=== PATIENT | female | born 1985 | race Two or more races ===

== ENCOUNTER 2024-07-22 09:07 | Emergency (ER) | payer MEDICAID, SELFPAY ==
[2024-07-22 09:23] VITALS: BP 128/79; PULSE 75; RESP 16; TEMP 37.1; O2SAT 99; BMI 25.9
--- NOTE | 2024-07-22 09:33 | EDNOTE_ITS ---
ED Allergic Reaction RME/HPI General Chief complaint: Allergic Reaction Stated complaint: ITCHINESS TO THE FEET, THROAT SWELLING Time Seen by Provider: 07/22/24 09:11 Arrival date/time: 07/22/24 09:07 39-year-old female present to emergency department today complains of rash and itching Limitations: no limitations Related Data Previous Rx's ?Medication ?Instructions ?Recorded diphenhydramine HCl 25 mg capsule 25 mg PO Q8H PRN allergic symptoms 07/22/24 (Benadryl) #30 caps Allergies Allergy/AdvReac Type Severity Reaction Status Date / Time No Known Allergies Allergy Verified 07/22/23 07:26 Review of Systems Review of Systems Systems Reviewed: All systems reviewed, normal except as documented Constitutional Constitutional: Reports system reviewed and no additional complaints, except as documented, Denies fever(s) and Denies headache(s) Eyes Eyes: Reports system reviewed and no additional complaints, except as documented and Denies blurry vision ENT Ears, Nose, Mouth, and Throat: Reports system reviewed and no additional complaints, except as documented, Denies headache(s), Denies nasal congestion and Denies nasal discharge Cardiovascular Cardiovascular: Reports system reviewed and no additional complaints, except as documented, Denies chest pain and Denies dyspnea Respiratory Respiratory: Reports system reviewed and no additional complaints, except as documented, Denies chest congestion, Denies cough and Denies dyspnea Gastrointestinal Gastrointestinal: Reports system reviewed and no additional complaints, except as documented and Denies abdominal pain Integumentary/Breasts Skin/Breast: Reports system reviewed and no additional complaints, except as documented, Reports pruritus and Reports rash Neurologic Neurologic: Reports system reviewed and no additional complaints, except as documented, Reports as per HPI and Denies headache(s) Past Medical History Past Medical History NEUROLOGIC: Negative Neurological Disorders CARDIAC: Negative Cardiac Disorders ED Exam General Limitations: Present no limitations General appearance: Present alert and in no apparent distress Head Head exam: Present atraumatic, normocephalic and normal inspection Eye Eye exam: Present normal appearance, PERRL and EOMI; Absent conjunctival injection ENT ENT exam: Present normal exam, normal oropharynx and mucous membranes moist Neck Neck exam: Present normal inspection, full ROM and trachea midline Chest Chest inspection: Present normal inspection and symmetric chest wall rise Respiratory Respiratory exam: Present normal lung sounds bilaterally; Absent respiratory distress Cardiovascular Cardiovascular exam: Present regular rate, normal rhythm and normal heart sounds Abdominal Exam Abdominal exam: Present soft and normal bowel sounds; Absent distention, tenderness, guarding, rebound or rigidity Extremities Exam Extremities exam: Present normal inspection and full ROM Back Exam Back exam: Present normal inspection and full ROM Neurological Exam Neurological exam: Present alert, oriented X3, CN II-XII intact, normal gait and reflexes normal; Absent motor sensory deficit Psychiatric Psychiatric exam: Present normal affect and normal mood Skin Skin exam: Present warm, dry and rash Course Quality Measures none Orders Category Date Time Status Dexamethasone Inj [Decadron Inj] Med 07/22/24 09:33 Discontinued 10 mg IM X1 ONE DiphenhydrAMINE [Benadryl] Med 07/22/24 09:33 Discontinued 25 mg PO X1 ONE Vital Signs Vital signs: Vital Signs Temperature 98.8 F 07/22/24 09:23 Pulse Rate 75 07/22/24 09:23 Respiratory Rate 16 07/22/24 09:23 Blood Pressure 128/79 07/22/24 09:23 Pulse Oximetry (%) 99 07/22/24 09:23 Oxygen Delivery Method Room Air 07/22/24 09:23 O2 saturation 99% on room air within normal limits Allergic Reaction MDM Narrative MDM Narrative:: 39-year-old female present to emergency department today complains of rash and itching Patient reports no chance of On exam patient well-appearing patient does not appear ill or toxic patient is not appear in acute distress Patient has no evidence of anaphylaxis patient medicated here and discharged with meds Patient discharged home in no distress to follow-up with primary care doctor in the next 24 to 48 hours and for any worsening symptoms to return to the ER immediately Patient data External records reviewed:: [facility] previous records Clinical information provided by:: patient Social determinants that could affect healthcare access:: none Patient has the following chronic illnesses:: None How is presenting disease/condition affected by chronic disease/condition?: no chronic disease Evaluation data The following diagnostics were reviewed and interpreted by me:: other (specify) (N/A) Lab and/or radiology exams considered but not ordered:: Consider not indicated Interpretation Summary: N/A Medications / Prescriptions Medications or Prescriptions considered but not ordered:: Given Medication administrations:: Medication Administration History Discontinued Medications Dexamethasone Sodium Phosphate (Dexamethasone Sod Phos Inj 10 Mg/Ml Vial) 10 mg IM X1 ONE Stop: 07/22/24 09:34 Last Admin: 07/22/24 09:51 Dose: 10 mg Documented By: ARF Diphenhydramine HCl (Diphenhydramine 25 Mg Capsule) 25 mg PO X1 ONE Stop: 07/22/24 09:34 Last Admin: 07/22/24 09:51 Dose: 25 mg Documented By: ARF Given Consultations Consultation(s) initiated? (list below): No Diagnosis Differential Diagnosis allergic reaction: anaphylaxis, allergic reaction and urticaria Most likely diagnosis given after review of the tests above:: Allergic reaction Admission Indicated Admission indicated?: not indicated Admission Request Was there a request for admission?: No Disposition Plan Disposition Plan: Discharge Discharge Attestation Discharge Attestation: The patient and all family members were given an opportunity to ask questions and understood the discharge instructions. Discharge instructions specifically effects, indications for sooner follow up or return to the emergency department, and the expected course of current diagnosis. Patient condition: Stable Discharge Plan Plan Patient Disposition: HOME (Self Care) Disposition Comment: Stable Prescriptions/Referrals Prescriptions/Med Rec: New diphenhydramine HCl [Benadryl] 25 mg capsule 25 mg PO Q8H PRN (Reason: allergic symptoms) Qty: 30 0RF Problem List Clinical Impression: Allergic reaction Patient/Caregiver Discharge Instructions Additional Instructions: Please follow up with your primary care doctor in the next 24-48hrs for any worsening symptoms return here immediately Print Language: Turkish Stand Alone Forms: Lisa Award Info., Patient Portal Info Letter PA/STAFFING BRANCH MANAGER Supervising Physician PA/REED Supervising Physician: Dr salomon
[2024-07-22] MEDS: DiphenhydrAMINE 25 MG CAPSULE PO (09:51)
[2024-07-22] MEDS: DEXAMETHASONE SOD PHOS INJ 10 MG/ML VIAL IM (09:51)
== END 2024-07-22 10:46 | disposition home or self-care (01) ==
LOC: SERX 10:22
PROVIDERS: Emergency Provider Emergency Medicine
DX: R21 Rash and other nonspecific skin eruption (principal)
CPT/HCPCS: 96372; 99283; J1100; A9270

== ENCOUNTER 2024-11-19 18:48 | Emergency (ER) | payer MEDICAID, SELFPAY ==
[2024-11-19 18:50] VITALS: BMI 24.0
--- NOTE | 2024-11-19 19:42 | PD.EDABDPN ---
ED Abdominal Pain RME/HPI General Chief Complaint: Back Pain/Injury Stated complaint: BILATERAL FLANK PAIN SINCE LAST NIGHT Time seen by provider: 11/19/24 19:37 Arrival date/time: 11/19/24 18:48 RME / HPI RME / HPI narrative: This section includes all my notes and documentations, including HPI, PE, and ED course. Sarkis Julio MD HPI: 39 y/o female with Hx of Obesity, Arthritis and Rheumatoid Arthritis presents to ED c/o bilateral flank pain, chills, lower abdominal pain, urinary urgency, and urinating only in small amounts x last night. Patient denies dysuria, vomiting, or fever. No other complaints. ROS: All negative except as documented in HPI. Physical Exam: General: Alert and oriented. In obvious pain. Eyes: Conjunctivae and lids clear. ENT: No nasal congestion. Neck: Supple. Heart: RRR. Lungs: No respiratory distress. Good air movement. No rhonchi, wheezing, rales. Abdomen: Soft with diffuse tenderness, difficult to localize. Normal bowel sounds. No distension. No rebound or guarding. Back: Bilateral CVA tenderness. Skin: Warm and dry. Neuro: Alert and oriented X 3. Prior to diagnostics, patient given Zofran ODT and two Tylenol #3. When she developed rash and itching, she was given Benadryl and prednisone. I reviewed all diagnostic test results. My review of the abdominal CT report is NAD. Blood tests and urine tests remarkable for WBC 13.6 and severe UTI. At this point, diagnoses include pyelonephritis. Rocephin 1 g IM given for pyelonephritis. When she needed more help with her pain, she was given Toradol 60 mg IM. Significant improvement noted. Recommended outpatient treatment. Based on my best medical judgment, made decision no further evaluation or treatment indicated at this time. Patient understands and agrees to the discharge instructions customized and printed, see below. Discharge instructions from Dr. Julio: 1. After evaluation, you have kidney infection which can cause severe pain. 2. Take cefdinir to kill the germs causing the infection.? Increase oral fluid to flush it out.? Maintain clear urine.? If dark or yellow, increase oral fluid. 3. Zofran for nausea/vomiting.? Toradol 10 mg every 6-8 hours today and tomorrow then as needed for pain. 4. See a private doctor on 11/23/2024 for recheck.? Ask to check the final urine culture results from today to make sure cefdinir doesn't need to be changed due to resistance. 5. Seek immediate medical care with worsening, fever, or with any concerns. Instrucciones de dolores del Dr. Julio: 1. Despu?s de la evaluaci?n, presenta gloria infecci?n renal que puede causar dolor intenso. 2. Uncertain cefdinir para eliminar los g?rmenes que causan la infecci?n. Aumente la cantidad de l?quidos orales para eliminarlos. Mantenga la orina damaso. Si es oscura o amarilla, aumente la cantidad de l?quidos orales. 3. Zofran para n?useas y v?mitos. Toradol 10 mg cada 6-8 horas hoy y ma?blair, seg?n sea necesario para el dolor. 4. Consulte con un m?dico particular el 23/11/2024 para gloria nueva revisi?n. Solicite que revisen los resultados finales del urocultivo de hoy para asegurarse de que no sea necesario cambiar la dosis de cefdinir debido a la resistencia. 5. Busque atenci?n m?dica inmediata si presenta empeoramiento, fiebre o cualquier inquietud. Sarkis Julio MD Related Data Previous Rx's ?Medication ?Instructions ?Recorded diphenhydramine HCl 25 mg capsule 25 mg PO Q8H PRN allergic symptoms 07/22/24 (Benadryl) #30 caps cefdinir 300 mg capsule 300 mg PO BID #14 caps 11/19/24 ketorolac 10 mg tablet 10 mg PO Q8H PRN pain 5 days #10 11/19/24 tabs ondansetron 4 mg disintegrating 4 mg PO TID PRN nausea and 11/19/24 tablet vomiting 30 days #10 tabs Allergies Allergy/AdvReac Type Severity Reaction Status Date / Time No Known Allergies Allergy Verified 11/19/24 18:53 Review of Systems Review of Systems Systems Reviewed: All systems reviewed, normal except as documented Narrative Review of Systems: Refer to HPI above. Past Medical History Past Medical History GASTROINTESTINAL: Positive Gastrointestinal Disorders and Obesity REPRODUCTIVE: Positive Previous Pregnancies MUSCULOSKELETAL: Positive Musculoskeletal Disorders, Arthritis and Rheumatoid Arthritis Surgical History SURGICAL: Positive Section (x2) Social History SMOKING STATUS: Never smoker ED Exam Narrative Physical exam: Refer to HPI above. Course Quality Measures none Orders Category Date Time Status CT abdomen pelvis wo con Stat Exams 11/19/24 19:43 Completed Amylase Stat Lab 11/19/24 19:55 Completed Bilirubin,Direct Stat Lab 11/19/24 19:55 Completed CBC Stat Lab 11/19/24 19:55 Completed CMP [Comprehensive Metabolic Panel] Stat Lab 11/19/24 19:55 Completed HCG Qualitative,Urine Stat Lab 11/19/24 21:20 Completed HCG,Qualitative Serum Stat Lab 11/19/24 19:55 Completed Lipase Stat Lab 11/19/24 19:55 Completed Magnesium Stat Lab 11/19/24 19:55 Completed UA, C/S IF [Urinalysis, C/S if Indicated] Stat Lab 11/19/24 21:20 Completed Urine Culture Stat Lab 11/19/24 21:20 Received ACETAMINOPHEN w/COD 300-30 [Tylenol w/Cod #3] Med 11/19/24 19:42 Discontinued 2 tab PO X1 ONE DiphenhydrAMINE [Benadryl] Med 11/19/24 21:31 Discontinued 50 mg PO X1 ONE Ketorolac Inj [Toradol Inj] Med 11/19/24 21:54 Discontinued 60 mg IM X1 ONE Ondansetron Odt [Zofran Odt] Med 11/19/24 19:42 Discontinued 4 mg PO X1 ONE cefTRIAXone [Rocephin] 1,000 mg Med 11/19/24 23:04 Discontinued Lidocaine 1% 20 ml [Xylocaine 1% 20 ML] 2.1 ml IM X1 predniSONE Med 11/19/24 21:31 Discontinued 60 mg PO X1 ONE Vital Signs Vital signs: Vital Signs Temperature 97.8 F 11/19/24 21:29 Pulse Rate 90 11/19/24 21:29 Respiratory Rate 18 11/19/24 21:29 Blood Pressure 125/85 H 11/19/24 21:29 Pulse Oximetry (%) 97 11/19/24 21:29 Oxygen Delivery Method Room Air 11/19/24 21:29 Abdominal Pain MDM MDM Narrative MDM Narrative:: Scribe Attestation: ITereista, am scribing for and in the presence of Dr. Julio. Provider Notation: Although this document has been carefully reviewed, there may still be some phonetic and other typographical errors. These errors are purely grammatical due to imperfections in the software program and should not be construed in any way to compromise the substance of the patient's medical care during this visit. Patient data External records reviewed:: [facility] previous records (Prior ED records reviewed from 07/22/24. Patient was seen for Allergic reaction.) Clinical information provided by:: patient Social determinants that could affect healthcare access:: none Patient has the following chronic illnesses:: Obesity, Arthritis and Rheumatoid Arthritis How is presenting disease/condition affected by chronic disease/condition?: exacerbated by Evaluation data The following diagnostics were reviewed and interpreted by me:: lab results and radiology exam(s) Lab and/or radiology exams considered but not ordered:: None Interpretation Summary: Pyelonephritis Medications / Prescriptions Medications or Prescriptions considered but not ordered:: None Medication administrations:: Medication Administration History Discontinued Medications Acetaminophen/Codeine Phosphate (Acetaminophen W/Cod 300-30 Tablet) 2 tab PO X1 ONE Stop: 11/19/24 19:43 Last Admin: 11/19/24 19:53 Dose: 2 tab Documented By: JULEE Ceftriaxone Sodium 1,000 mg/ (Lidocaine HCl 2.1 ml) 0 mg IM X1 ONE Stop: 11/19/24 23:05 Last Admin: 11/19/24 23:29 Dose: 1,000 mg Documented By: JULEE Comments: 2.1 ml lido Diphenhydramine HCl (Diphenhydramine 25 Mg Capsule) 50 mg PO X1 ONE Stop: 11/19/24 21:32 Last Admin: 11/19/24 21:39 Dose: 50 mg Documented By: JULEE Ketorolac Tromethamine (Ketorolac Inj 60 Mg/2 Ml Vial) 60 mg IM X1 ONE Stop: 11/19/24 21:55 Last Admin: 11/19/24 23:34 Dose: Not Given Documented By: JULEE Non-Admin Reason: Patient Refused Ondansetron HCl (Ondansetron Odt 4 Mg Tabrap) 4 mg PO X1 ONE; Protocol Stop: 11/19/24 19:43 Last Admin: 11/19/24 19:53 Dose: 4 mg Documented By: JULEE Prednisone (Prednisone 20 Mg Tablet) 60 mg PO X1 ONE Stop: 11/19/24 21:32 Last Admin: 11/19/24 21:39 Dose: 60 mg Documented By: JULEE Acetaminophen/Codeine Phosphate, Ceftriaxone Sodium, Diphenhydramine HCl, Ketorolac Tromethamine, Ondansetron HCl, Prednisone Consultations Consultation(s) initiated? (list below): No Diagnosis Differential diagnosis abdominal pain: abdominal pain, acute appendicitis, calculus of kidney, constipation, diverticulitis, endometriosis, gastroenteritis, pancreatitis, small bowel obstruction and other (UTI vs Pyelonephritis) Most likely diagnosis given after review of the tests above:: Kidney infection Admission Indicated Admission indicated?: not indicated Explain why admission is indicated or not indicated:: With significant improvement, there was no indication for admission. Admission Request Was there a request for admission?: No Disposition Plan Disposition Plan: Discharge Discharge Attestation Discharge Attestation: The patient and all family members were given an opportunity to ask questions and understood the discharge instructions. Discharge instructions specifically effects, indications for sooner follow up or return to the emergency department, and the expected course of current diagnosis. Patient condition: Stable Discharge Plan Plan Patient Disposition: HOME (Self Care) Prescriptions/Referrals Prescriptions/Med Rec: New ketorolac 10 mg tablet 10 mg PO Q8H PRN (Reason: pain) 5 Days Qty: 10 0RF ondansetron 4 mg tablet,disintegrating 4 mg PO TID PRN (Reason: nausea and vomiting) 30 Days Qty: 10 0RF cefdinir 300 mg capsule 300 mg PO BID Qty: 14 0RF No Action diphenhydramine HCl [Benadryl] 25 mg capsule 25 mg PO Q8H PRN (Reason: allergic symptoms) Qty: 30 0RF Referrals: No Primary/Family,Physician [Primary Care Provider] - In 1 week Problem List Clinical Impression: Kidney infection Patient/Caregiver Discharge Instructions Discharge Activity: activity as tolerated Education Materials: ED Pyelonephritis, Female (Adult) Additional Instructions: Discharge instructions from Dr. Julio: 1. After evaluation, you have kidney infection which can cause severe pain. 2. Take cefdinir to kill the germs causing the infection.? Increase oral fluid to flush it out.? Maintain clear urine.? If dark or yellow, increase oral fluid. 3. Zofran for nausea/vomiting.? Toradol 10 mg every 6-8 hours today and tomorrow then as needed for pain. 4. See a private doctor on 11/23/2024 for recheck.? Ask to check the final urine culture results from today to make sure cefdinir doesn't need to be changed due to resistance. 5. Seek immediate medical care with worsening, fever, or with any concerns. Instrucciones de dolores del Dr. Julio: 1. Despu?s de la evaluaci?n, presenta gloria infecci?n renal que puede causar dolor intenso. 2. Uncertain cefdinir para eliminar los g?rmenes que causan la infecci?n. Aumente la cantidad de l?quidos orales para eliminarlos. Mantenga la orina damaso. Si es oscura o amarilla, aumente la cantidad de l?quidos orales. 3. Zofran para n?useas y v?mitos. Toradol 10 mg cada 6-8 horas hoy y ma?blair, seg?n sea necesario para el dolor. 4. Consulte con un m?dico particular el 23/11/2024 para gloria nueva revisi?n. Solicite que revisen los resultados finales del urocultivo de hoy para asegurarse de que no sea necesario cambiar la dosis de cefdinir debido a la resistencia. 5. Busque atenci?n m?dica inmediata si presenta empeoramiento, fiebre o cualquier inquietud. Print Language: Belarusian Stand Alone Forms: Lisa Award Info., Patient Portal Info Letter
--- NOTE | 2024-11-19 19:43 | XR_ITS ---
Examination: CT abdomen and pelvis without contrast. Coronal 3-D reconstructions. Sagittal 2-D reconstructions. Date and time of exam:November 19, 2024 1030 hrs. Indications: Mid abdominal pain beginning 2 days ago CTDI: vol (mGy): 6.31 DLP: (mGycm): 357 Technique: Axial images of the abdomen have been obtained, 3 mm slice thickness Intravenous contrast material has not been administered. Low dose protocols were performed. One or more of the following dose reduction techniques were used; automated exposure control, adjustment of the mA and/or KV according to patient size, use of iterative reconstruction technique. Findings: No visualized liver or splenic lesion Absent gallbladder Common hepatic duct 9 mm no common hepatic or common bile duct stones Negative for pancreatitis Normal adrenal glands No renal or ureteral calculi, no hydronephrosis Aorta normal size 8mm fat-containing umbilical hernia Normal appendix Anteverted uterus with irregular uterine fundal contour Urinary bladder intact Osseous structures intact Impression: Absent gallbladder Common hepatic duct 9 mm, no common hepatic or common bile duct stones noted, consider hepatobiliary sonography follow-up No renal or ureteral calculi, no hydronephrosis Small fat-containing umbilical hernia Normal appendix Recommend pelvic sonography to assess irregular uterine fundal contour
[2024-11-19] MEDS: ACETAMINOPHEN w/COD 300-30 TABLET 2 TAB PO (19:53)
[2024-11-19] MEDS: ONDANSETRON ODT 4 MG TABRAP PO (19:53)
[2024-11-19 20:14] LABS: Basophils % (Auto) 0 % (0-2.5); Eosinophils % (Auto) 0 % (0-10); Hematocrit 43.5 % (36.0-46.0); Hemoglobin 15.4 g/dL (12.0-16.0); Immature Granulocytes % (Auto) 0 % (0-0); Immature Granulocytes Auto 0.04 Thou/mm3 (0.00-0.00); Lymphocytes # (Auto) 2.4 Thou/mm3 (1.0-4.8); Lymphocytes % (Auto) 18 % (10-50); Mean Corpuscular HGB Conc 35.4 g/dl (31.0-37.0); Mean Corpuscular Hemoglobin 32.6 pg (25.0-35.0); Mean Corpuscular Volume 92 fL (80-100); Monocytes # (Auto) 1.1 Thou/mm3 (0.0-0.8); Monocytes % (Auto) 8 % (0-12); Neutrophils % (Auto) 74 % (37-80); Nucleated Red Blood Cell % 0 /100 WBC (0); Platelet Count 281 Thou/mm3 (140-440); Red Blood Count 4.72 Miln/mm3 (4.00-5.20); White Blood Count 13.6 Thou/mm3 (3.6-11.0)
[2024-11-19 20:29] LABS: Alanine Aminotransferase 40 U/L (10-49); Albumin, Serum 4.3 gm/dL (3.5-5.0); Albumin/Globulin Ratio 1.3 (1.2-2.2); Alkaline Phosphatase 74 U/L (46-116); Amylase 102 U/L (30-118); Anion Gap 6 (7-16); Aspartate Amino Transferase 27 U/L (0-34); BUN/Creatinine Ratio 13 Ratio (12-20); Bilirubin,Direct 0.3 mg/dL (0.0-0.3); Bilirubin,Total 1.2 mg/dL (0.3-1.2); Blood Urea Nitrogen 10 mg/dL (9-23); Calcium 9.3 mg/dL (8.3-10.6); Calcium (Corrected) 9.3 mg/dL (8.5-10.1); Carbon Dioxide 27.7 mMol/L (20.0-31.0); Chloride 105 mMol/L (98-107); Creatinine (Component) 0.8 mg/dL (0.6-1.3); Estimated Creatinine Clearance 83.1 mL/min (>60); Globulin 3.3 gm/dL (2.3-3.5); Glucose 99 mg/dL (74-106); Lipase 36 U/L (12-53); Osmolality,Calculated 276 (275-295); Potassium 3.7 mMol/L (3.4-5.1); Sodium 139 mMol/L (136-145); Total Protein 7.6 gm/dL (5.7-8.2); eGFR > 60 See Note
[2024-11-19 20:56] LABS: HCG,Qualitative Serum Negative
[2024-11-19 21:29] VITALS: BP 125/85; PULSE 90; RESP 18; TEMP 36.6; O2SAT 97
[2024-11-19] MEDS: predniSONE 20 MG TABLET 60 MG PO (21:39)
[2024-11-19] MEDS: DiphenhydrAMINE 25 MG CAPSULE 50 MG PO (21:39)
[2024-11-19 21:48] LABS: Collection Type, Urine Clean Catch
[2024-11-19 21:58] LABS: HCG Qualitative,Urine Negative
[2024-11-19 22:07] LABS: Bacteria,Urine Rare; Bilirubin,Urine Negative (Negative); Blood,Urine 2+ (Negative); Clarity,Urine Clear (Clear/Hazy); Color,Urine Lt-Yellow (Lt Yel-Yel); Culture Indicated,Urine Yes; Glucose, Urine Negative (Negative); Ketones,Urine Negative (Negative); Leukocyte Esterase,Urine Positive (Negative); Nitrite,Urine Negative (Negative); PH,Urine 6.5 (5.0-7.0); Protein,Urine Trace (Neg - Trace); RBC,Urine 9 /hpf (0-3); Specific Gravity,Urine 1.009 (1.001-1.035); Squamous Epithelial Cell,Urine 1 /hpf (0-5); Urobilinogen,Urine Negative mg/dL (0.0-1.0); WBC,Urine 91 /hpf (0-5)
[2024-11-19] MEDS: cefTRIAXone 1,000 MG, LIDOCAINE 1% 20 ML 2.1 ML IM (23:29)
== END 2024-11-19 23:43 | disposition home or self-care (01) ==
PROVIDERS: Emergency Provider Emergency Medicine
DX: N12 Tubulo-interstitial nephritis, not specified as acute or chronic (principal)
CPT/HCPCS: 36415; 74176; 80053; 81001; 81025; 82150; 82248; 83690; 83735; 84703; 85025; 87077; 87086; 87186; 96372; 99284; J0696; J3490; J7512; Q0162; A9270

== ENCOUNTER → 2025-03-10 | Outpatient (CLI) | payer MEDICAID, SELFPAY ==
--- NOTE | 2025-03-10 | XR_ITS ---
Examination: Bilateral wrists 6 views TECHNIQUE: AP oblique lateral each wrist total 6 views Date and time: March 10 thousand 25, 0927 hours INDICATIONS: Bilateral wrist pain beginning 15 years ago. FINDINGS: Mild to moderate bone demineralization. Mild to moderate narrowing radiocarpal intercarpal carpometacarpal joints bilaterally. No erosive arthritis. No fractures. No avascular necrosis IMPRESSION: Mild to moderate narrowing radiocarpal, intercarpal, carpometacarpal joints
--- NOTE | 2025-03-10 09:04 | XR_ITS ---
Examination: Bilateral hands, 6 views. Technique: AP, Oblique, Lateral each hand total 6 views Date and time of exam: March 10 thousand 25, 0920 hours INDICATIONS: Bilateral hand and wrist pain 15 years. FINDINGS: Moderate juxta-articular bone demineralization Mild to moderate diffuse narrowing joints of the wrists and hands. No erosive arthritis. No fractures. No avascular necrosis. No foreign bodies IMPRESSION: Mild to moderate diffuse narrowing joints of the wrists and hands No erosive arthritis
== END | disposition home or self-care (01) ==
LOC: CDIM 08:53
PROVIDERS: PCP Family Medicine; Referring Provider Nurse Practitioner; Visit Provider Nurse Practitioner
DX: M25.832 Other specified joint disorders, left wrist (principal); M25.831 Other specified joint disorders, right wrist; M25.842 Other specified joint disorders, left hand; M25.841 Other specified joint disorders, right hand
CPT/HCPCS: 73110; 73130

== ENCOUNTER 2025-06-25 18:16 | Emergency (ER) | payer MEDICAID, SELFPAY ==
[2025-06-25 19:07] VITALS: BP 123/73; PULSE 90; RESP 19; TEMP 36.7; O2SAT 98; BMI 22.3
--- NOTE | 2025-06-25 19:24 | PD.EDRME ---
Rapid Medical Screening Exam [facility] Arrival date/time: 06/25/25 18:16 39F with history of RA (on month infusion) and hysterectomy presents to ED with 2 days of bilateral flank and lower ab/pelvic pain. Possible dysuria. Chief Complaint: Abdominal Pain Vital signs: Vital Signs Temperature 98.1 F 06/25/25 19:07 Pulse Rate 90 06/25/25 19:07 Respiratory Rate 19 06/25/25 19:07 Blood Pressure 123/73 06/25/25 19:07 Pulse Oximetry (%) 98 06/25/25 19:07 Oxygen Delivery Method Room Air 06/25/25 19:07 Exam: CVA tenderness. No ab tenderness. Clinical Impression: Pyelo/UTI vs appy vs kidney stone vs pelvic pain vs back pain vs DDD
[2025-06-25] MEDS: NAPROXEN 250 MG TABLET 500 MG PO (19:36)
[2025-06-25 19:57] LABS: Collection Type, Urine Clean Catch
[2025-06-25 19:57] LABS: Lactate (Lactic Acid) 0.5 mMol/L (0.4-2.0)
[2025-06-25 20:02] LABS: Basophils # (Auto) 0.0 Thou/mm3 (0.0-0.2); Basophils % (Auto) 0 % (0-2.5); Eosinophils # (Auto) 0.0 Thou/mm3 (0.0-0.5); Eosinophils % (Auto) 0 % (0-10); Hematocrit 40.6 % (36.0-46.0); Hemoglobin 14.0 g/dL (12.0-16.0); Immature Granulocytes Auto 0.04 Thou/mm3 (0.00-0.00); Lymphocytes # (Auto) 2.7 Thou/mm3 (1.0-4.8); Lymphocytes % (Auto) 19 % (10-50); Mean Corpuscular HGB Conc 34.5 g/dl (31.0-37.0); Mean Corpuscular Hemoglobin 32.7 pg (25.0-35.0); Mean Corpuscular Volume 95 fL (80-100); Monocytes # (Auto) 1.2 Thou/mm3 (0.0-0.8); Monocytes % (Auto) 9 % (0-12); Neutrophils # (Auto) 10.4 Thou/mm3 (1.8-7.7); Neutrophils % (Auto) 72 % (37-80); Nucleated Red Blood Cell # 0.00 Thou/mm3 (0.00-0.00); Nucleated Red Blood Cell % 0 /100 WBC (0); Platelet Count 290 Thou/mm3 (140-440); RDW Standard Deviation 42.5 fL (36.4-46.3); Red Blood Count 4.28 Miln/mm3 (4.00-5.20); White Blood Count 14.4 Thou/mm3 (3.6-11.0)
[2025-06-25 20:06] LABS: Bilirubin,Urine Negative (Negative); Blood,Urine Trace (Negative); Clarity,Urine Clear (Clear/Hazy); Color,Urine Lt-Yellow (Lt Yel-Yel); Glucose, Urine Negative (Negative); Ketones,Urine Negative (Negative); Leukocyte Esterase,Urine Positive (Negative); Nitrite,Urine Negative (Negative); PH,Urine 7.0 (5.0-7.0); Protein,Urine Negative (Neg - Trace); RBC,Urine 6 /hpf (0-3); Specific Gravity,Urine 1.011 (1.001-1.035); Squamous Epithelial Cell,Urine 3 /hpf (0-5); Urobilinogen,Urine Negative mg/dL (0.0-1.0); WBC,Urine 24 /hpf (0-5)
[2025-06-25 20:16] LABS: Culture Indicated,Urine Yes
[2025-06-25 20:29] LABS: Alanine Aminotransferase 13 U/L (10-49); Albumin, Serum 4.2 gm/dL (3.5-5.0); Albumin/Globulin Ratio 1.6 (1.2-2.2); Alkaline Phosphatase 60 U/L (46-116); Anion Gap 10 (7-16); Aspartate Amino Transferase 19 U/L (0-34); BUN/Creatinine Ratio 13 Ratio (12-20); Bilirubin,Total 1.2 mg/dL (0.3-1.2); Blood Urea Nitrogen 8 mg/dL (9-23); Calcium 9.4 mg/dL (8.3-10.6); Calcium (Corrected) 9.4 mg/dL (8.5-10.1); Carbon Dioxide 24.3 mMol/L (20.0-31.0); Chloride 105 mMol/L (98-107); Creatinine (Component) 0.6 mg/dL (0.6-1.3); Estimated Creatinine Clearance 110.9 mL/min (>60); Globulin 2.7 gm/dL (2.3-3.5); Glucose 87 mg/dL (74-106); Osmolality,Calculated 274 (275-295); Potassium 3.7 mMol/L (3.4-5.1); Procalcitonin 0.10 ng/ml (0.0-0.49); Sodium 139 mMol/L (136-145); Total Protein 6.9 gm/dL (5.7-8.2); eGFR > 60 See Note
--- NOTE | 2025-06-25 20:46 | EDNOTE_ITS ---
ED Abdominal Pain RME/HPI General Chief Complaint: Abdominal Pain Stated complaint: B/L ABD PAIN Time seen by provider: 06/25/25 19:37 Arrival date/time: 06/25/25 18:16 39-year-old female patient with no past medical history except for surgical history of cholecystectomy, came in for evaluation regarding bilateral flank pain, onset of symptoms since yesterday as bilateral flank pain, associated with dysuria, severity mild. Also complained of low back pain. Patient pain radiates to the front. No vomiting no fever no hematuria no diaphoresis no other complaints noted patient is ambulatory. RME / HPI RME / HPI narrative: 06/25/25 18:16 39F with history of RA (on month infusion) and hysterectomy presents to ED with 2 days of bilateral flank and lower ab/pelvic pain. Possible dysuria. Exam: CVA tenderness. No ab tenderness. Impression: Pyelo/UTI vs appy vs kidney stone vs pelvic pain vs back pain vs DDD Related Data Previous Rx's ?Medication ?Instructions ?Recorded diphenhydramine HCl 25 mg capsule 25 mg PO Q8H PRN all ergic symptoms 07/22/24 (Benadryl) #30 caps cefdinir 300 mg capsule 300 mg PO BID #14 caps 11/19 ciprofloxacin HCl 500 mg tablet 500 mg PO BID #14 tabs 06/25/25 (Cipro) naproxen 500 mg tablet (Naprosyn) 500 mg PO BID PRN pa in #20 tabs 06/25/25 Allergies Allergy/AdvReac Type Severity Reaction Status Date / Time No Known Allergies Allergy Verified 06/25/25 18:18 Review of Systems Review of Systems Narrative Review of Systems: Review of system reviewed and within normal limits except mentioned in HPI ED Exam Narrative Physical exam: VITAL SIGNS: Reviewed. GENERAL APPEARANCE: Alert and interactive, follows commands, no acute distress, HEAD AND FACE: Non-traumatic. ENT: PERRL, pink conjunctivitis, eyelid no trauma, Mucous membrane moist. NECK: Supple, nontender, no nuchal rigidity. CHEST: No tenderness, no crepitus, no paradoxical movement, no retractions. LUNGS: Clear, well ventilated, symmetric, no rales, no wheezing, no ronchi, no stridor, good breath sounds bilaterally. HEART: Regular rate, regular rhythm, no murmur, no gallops. ABDOMEN: Soft, positive bowel sounds, nondistended, no guarding, nontender, no rebound, no masses, bilateral flank tenderness, RECTAL: Deferred. GENITAL: Deferred. NEUROLOGICAL: Gross motor function intact sensory function intact, Appropriate for age. MUSCULOSKELETAL: low back tenderness, full range of motion. EXTREMITIES: Nontender, full range of motion. SKIN: Color pink, dry, no rash, no lacerations, no abrasions, no contusions. LYMPHATICS: Deferred. Course Quality Measures none Orders Category Date Time Status CBC Stat Lab 06/25/25 19:49 Completed CMP [Comprehensive Metabolic Panel] Stat Lab 06/25/25 19:49 Completed Lactate (Lactic Acid) Stat Lab 06/25/25 19:49 Completed Procalcitonin Stat Lab 06/25/25 19:49 Completed Urinalysis, C/S if Indicated Stat Lab 06/25/25 19:35 Completed Urine Culture Stat Lab 06/25/25 19:35 Received HYDROcodone*/APAP 5/325 [[place] 5/325] Med 06/25/25 20:42 Discontinued 1 tab PO X1 ONE Naproxen [Naprosyn] Med 06/25/25 19:24 Discontinued 500 mg PO X1 ONE cefTRIAXone [Rocephin] 1,000 mg Med 06/25/25 20:42 Discontinued Lidocaine 1% Pf 5 ml [Xylocaine 1% Pf 5 ml] 2.1 ml IM X1 Vital Signs Vital signs: Vital Signs Temperature 98.1 F 06/25/25 19:07 Pulse Rate 90 06/25/25 19:07 Respiratory Rate 19 06/25/25 19:07 Blood Pressure 123/73 06/25/25 19:07 Pulse Oximetry (%) 98 06/25/25 19:07 Oxygen Delivery Method Room Air 06/25/25 19:07 Abdominal Pain MDM MDM Narrative MDM Narrative:: 39-year-old female patient with no past medical history except for surgical history of cholecystectomy, came in for evaluation regarding bilateral flank pain, onset of symptoms since yesterday as bilateral flank pain, associated with dysuria, severity mild. Also complained of low back pain. Patient pain radia anni to the front. No vomiting no fever no hematuria no diaphoresis no other complaints noted patient is ambulatory. Patient's workup is significant for UTI, WBC count slightly elevated WBC count of 14.4 CMP unremarkable. Results discussed with the patient and family. Patient received ceftriaxone IM and naproxen p.o. Stable for charged home Patient data External records reviewed:: None Clinical information provided by:: patient and family Social determinants that could affect healthcare access:: none Patient has the following chronic illnesses:: None How is presenting disease/condition affected by chronic disease/condition?: no chronic disease Evaluation data The following diagnostics were reviewed and interpreted by me:: lab results Lab and/or radiology exams considered but not ordered:: None Interpretation Summary: See above Medications / Prescriptions Medications or Prescriptions considered but not ordered:: None Medication administrations:: Medication Administration History Discontinued Medications Hydrocodone Bitart/Acetaminophen (Hydrocodone/[place] 5/325 Tablet) 1 tab PO X1 ONE Stop: 06/25/25 20:43 Ceftriaxone Sodium 1,000 mg/ (Lidocaine HCl 2.1 ml) 0 mg IM X1 ONE Stop: 06/25/25 20:43 Naproxen (Naproxen 250 Mg Tablet) 500 mg PO X1 ONE Stop: 06/25/25 19:25 Last Admin: 06/25/25 19:36 Dose: 500 mg Documented By: JOYCE Ceftriaxone IM, [place], and naproxen Consultations Consultation(s) initiated? (list below): No Diagnosis Differential diagnosis abdominal pain: abdominal pain and other (UTI, acute pyelonephritis uncomplicated) Most likely diagnosis given after review of the tests above:: UTI Admission Indicated Admission indicated?: not indicated Admission Request Was there a request for admission?: No Disposition Plan Disposition Plan: Discharge Discharge Attestation Discharge Attestation: The patient and all family members were given an opportunity to ask questions and understood the discharge instructions. Discharge instructions specifically effects, indications for sooner follow up or return to the emergency department, and the expected course of current diagnosis. Patient condition: Stable Discharge Plan Plan Patient Disposition: HOME (Self Care) Discharge Disposition comment: stable Prescriptions/Referrals Prescriptions/Med Rec: New ciprofloxacin HCl [Cipro] 500 mg tablet 500 mg PO BID Qty: 14 0RF naproxen [Naprosyn] 500 mg tablet 500 mg PO BID PRN (Reason: pain) Qty: 20 0RF No Action diphenhydramine HCl [Benadryl] 25 mg capsule 25 mg PO Q8H PRN (Reason: allergic symptoms) Qty: 30 0RF cefdinir 300 mg capsule 300 mg PO BID Qty: 14 0RF Referrals: Korey Amaral MD [Primary Care Provider, Family Practice] - In 1 week Problem List Clinical Impression: UTI (urinary tract infection) Patient/Caregiver Discharge Instructions Discharge Activity: activity as tolerated Education Materials: Understanding Urinary Tract ... Additional Instructions: Thank you for the opportunity for serving you today. You are stable for discharged . You are advised to: Follow-up with your PCP in 1 to 2 days Return to ED for worsening of symptoms Increase oral fluids Take medication as prescribed Print Language: Citizen Of [place] Stand Alone Forms: Lisa Award Info., Patient Portal Info Letter PA/DERRICK OPERATOR Supervising Physician PA/DERRICK OPERATOR Supervising Physician: MD Mik
[2025-06-25 20:52] VITALS: BP 131/84; PULSE 83; RESP 18; TEMP 37.2; O2SAT 97
[2025-06-25] MEDS: HYDROcodone/APAP 5/325 TABLET 1 TAB PO (20:53)
== END 2025-06-25 21:00 | disposition home or self-care (01) ==
PROVIDERS: Physician Assistant; Emergency Provider Emergency Medicine; PCP Family Medicine
DX: N39.0 Urinary tract infection, site not specified (principal)
CPT/HCPCS: 36415; 80053; 81001; 83605; 84145; 85025; 87077; 87086; 87186; 96372; 99283; J0696; J3490; A9270